=== PATIENT | female | born 1965 | race Caucasian/White ===

== ENCOUNTER 2016-09-27 20:26 | Observation (INO) | payer OTHER ==
[~2016-09-27] VITALS: Ht 167.6 cm; Wt 141.0 kg
--- NOTE | ~2016-09-27 | HP ---
PATIENT'S NAME: LETICIA WILKINS [facility] AGE: 51 Y [address] ROOM: [place] [address] LOCATION: [facility] ADMIT DATE: 09/27/2016 History & Physical DISCHARGE DATE: FAMILY PHYSICIAN: Sanket Simental MD ATTENDING PHYSICIAN: Uzair Zapien DATE OF SERVICE: 09/27/2016 CHIEF COMPLAINT: Abdominal pain. 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 She has sudden onset of generalized abdominal pain that started about 10 o'clock this morning and slowly migrated to the right lower quadrant through the course of the day. She comes with these complaints. This was also associated with anorexia since this morning and multiple episodes of bilious vomiting. Since arriving here, she has 150 of fentanyl and 8 of Zofran and her pain is better controlled but still has persistent pain in the right lower quadrant. She denies any associated fevers or chills, chest pain, shortness of breath, or other complaints. She denies any previous pain of this type. Although was somewhat reminiscent of previous attacks of diverticulitis. She denies any recent travel change in dietary habits or sick contacts. ALLERGIES: SHE HAS A SENSITIVITY FOR OXYCODONE AND HYDROCODONE WHERE IT HAS CAUSED HER A BIT OF ITCHINESS, BUT NO ACTUAL TRUE SIDE EFFECTS ASIDE FROM THAT. MEDICATION HISTORY: Please see hospital list for complete list of medications, but in short she does take aspirin normally 81 although this weekend she took some 325 because she was using her 's, otherwise she takes Synthroid and Maxzide. PAST MEDICAL HISTORY: Diabetes, hypothyroidism, history of cholecystectomy, history of diverticulitis, history of umbilical hernia repair complicated by wound infection, but did not require mesh removal. SOCIAL HISTORY: Denies tobacco or alcohol use or abuse. She is and her accompanies her here today. REVIEW OF SYSTEMS: A full 10-point review of systems was discussed with the patient was negative PATIENT'S NAME: LETICIA WILKINS [facility] AGE: 51 Y [address] ROOM: [place] [address] LOCATION: [facility] ADMIT DATE: 09/27/2016 History & Physical DISCHARGE DATE: FAMILY PHYSICIAN: Sanket Simental MD ATTENDING PHYSICIAN: Uzair Zapien except for as discussed above. Specifically, she denies any chest pain, shortness of breath, or urinary symptoms. FAMILY HISTORY: Noncontributory. She denies any history of inflammatory bowel disease or colorectal malignancies in the family. PHYSICAL EXAMINATION: GENERAL: 51-year-old woman in no apparent distress, lying on her side in the ER bed. She is in no apparent distress. Afebrile. VITAL SIGNS: Stable. HEENT: Sclerae anicteric. NECK: Supple. Trachea is midline. CHEST: Breathing is nonlabored. CARDIAC: Her rate and rhythm are regular. ABDOMEN: Soft, obese, nondistended, tenderness to palpation in the right lower quadrant. Positive Rovsing sign. EXTREMITIES: Bilateral lower extremities are warm. Brisk capillary refill without evidence of significant edema. No obvious calf tenderness or swelling. No obvious skin lesions or rashes. LABORATORY EVALUATION: White count 15.6, with 88.5% neutrophils, hemoglobin 16.0, platelets were 320. Lactate 2.2. Sodium 141, potassium is 3.7, chloride 109, CO2 is 23, BUN is 13, creatinine 0.9, calcium 8.8, glucose is 181. Total bilirubin 0.5, alkaline phosphatase 101, AST is 20, ALT is 27, amylase 35, lipase is 85, CRP is 2.01. RADIOLOGY REVIEW: CT scan of the abdomen and pelvis shows history of cholecystectomy, shows an inflamed acute appendix without periappendiceal fat stranding, dilated thick- walled appendix that lies in the retrocecal position without other acute abnormalities. ASSESSMENT AND PLAN: A 51-year-old woman with 1-day history that is clinically and radiographically suggestive of acute appendicitis. We discussed the option such as antibiotics and surgical resection. We discussed risks of surgery including infection, bleeding, damage to surrounding structures, conversion to open amongst others. We discussed the fact that the previous umbilical hernia repair does slightly complicate the issue because some amount of adhesiolysis will also be required. She understands the risks and benefits of procedure and had all of her questions answered to their satisfaction and wishes to proceed with laparoscopic appendectomy. She will get a gram of Invanz prior to surgery. She will get SCDs on and subcutaneous dose of 40 of Lovenox prior to surgery PATIENT'S NAME: LETICIA WILKINS [facility] AGE: 51 Y [address] ROOM: [place] [address] LOCATION: [facility] ADMIT DATE: 09/27/2016 History & Physical DISCHARGE DATE: FAMILY PHYSICIAN: Sanket Simental MD ATTENDING PHYSICIAN: Uzair Zapien as DVT prophylaxis. MD ISHA DICKENS (JAKE)/zachery /[id number] D: [id number]: [id number] HISTORY & PHYSICAL
--- NOTE | ~2016-09-27 | ER ---
PATIENT'S NAME: FRANKY [facility] AGE: 51 Y [address] ROOM: [place] [address] LOCATION: [facility] ADMIT DATE: 09/27/2016 ER/Outpatient Report DISCHARGE DATE: FAMILY PHYSICIAN: Sanket Simental MD ATTENDING PHYSICIAN: Uzair Zapien Admission date and time documented in the medical record. I saw the patient at 2335 hours. CHIEF COMPLAINT: Abdominal pain. HISTORY OF PRESENT ILLNESS: This patient is a 51-year-old female, who since around 1000 hours this morning has had generalized abdominal pain, accompanied with nausea and vomiting. She has vomited more than 20 times. No diarrhea. No blood in her vomitus. She has had some chills, but no documented fever. Last ate at 0800 hours. She had one bowel movement today. No urinary frequency, urgency, or dysuria. No back pain. No chest pain, shortness of breath. No lightheadedness, dizziness, syncope, or near syncope. No fall or trauma. No recent colds, coughs, or flus. No headache, eyes, ears, nose, throat, neck, or spine pain. No joint or muscle swelling, redness, or pain. No skin eruptions or rash. No history of neuro changes, psych issues, endocrine problems. HOME MEDICATIONS: See attached medication list. ALLERGIES: ULTRAM. SOCIAL HISTORY: Nonsmoker, nondrinker. SIGNIFICANT PAST MEDICAL HISTORY: Hypothyroidism, hypertension, diverticulosis, diverticulitis. OPERATIONS: Cholecystectomy, umbilical herniorrhaphy. REVIEW OF SYSTEMS: All systems reviewed by me are negative with the exception of those discussed in the history of present illness. PHYSICAL EXAMINATION: VITAL SIGNS: Temperature 98.9 tympanic, pulse 93, respirations 20, blood PATIENT'S NAME: FRANKY [facility] AGE: 51 Y [address] ROOM: [place] [address] LOCATION: [facility] ADMIT DATE: 09/27/2016 ER/Outpatient Report DISCHARGE DATE: FAMILY PHYSICIAN: Sanket Simental MD ATTENDING PHYSICIAN: Uzair Zapien pressure 172/71, O2 saturation on room air is 95%. HEAD: Normocephalic. EYES, EARS, NOSE, THROAT: Clear. Mucous membranes moist. NECK: Negative. SPINE: Negative. LUNGS: Clear. Good air flow. No rales, rhonchi, or wheezes. HEART: Regular. Pulses are palpable. ABDOMEN: Obese soft, some tenderness generalized, but more so on the right. Abdomen does guard. No CVA tenderness. EXTREMITIES: Intact. NEUROVASCULAR: Intact. SKIN: Clear. No skin eruptions or rash. LABORATORY DATA: CMS was normal except an elevated glucose 181. Amylase and lipase were normal. CRP was 2.01. Procalcitonin was less than 0.05. Lactate was 2.2. White count was 15,600, 89 segs, 7 lymphs, 4 monos, hemoglobin was 16 with hematocrit 47.1, platelet count was 320,000. EMERGENCY DEPARTMENT COURSE: I did start the patient on IV normal saline, gave her Zofran IV for nausea and vomiting, fentanyl IV for pain. Did a CT scan of the abdomen and pelvis, showed acute appendicitis. CT scan was read by Radiology, see dictated transcribed reports. IMPRESSION: 1. Right-sided abdominal pain secondary to acute appendicitis without abscess. 2. Hypothyroidism. 3. Hypertension. PLAN: Discussed the patient with Dr. Salguero, surgeon. Dr. Salguero is coming to see the patient. We will proceed on his recommendations. Discussion ensued with the patient concerning my findings and recommendations, she understands. MD NEFTALI MICHEL/pradeepl /[id number] d: 09/28/16 0051 t: 10/06/16 1826, OUTPATIENT REPORT
--- NOTE | ~2016-09-27 | OR ---
PATIENT'S NAME: HARDIK WILKINS [facility] AGE: 51 Y [address] ROOM: [place] [address] LOCATION: [facility] ADMIT DATE: 09/28/2016 OR/Procedure Report DISCHARGE DATE: FAMILY PHYSICIAN: COLLIN PIERCE MD ATTENDING PHYSICIAN: Ted SALGUERO (Jake) SURGEON: Ted Salguero MD (Jake) RUBBER GRINDER: DATE OF PROCEDURE: 09/28/2016 PREOPERATIVE DIAGNOSIS: Acute appendicitis. POSTOPERATIVE DIAGNOSIS: Acute necrotizing appendicitis. PROCEDURE PERFORMED: Laparoscopic appendectomy. ANESTHESIA: General endotracheal anesthesia. COMPLICATIONS: None. ESTIMATED BLOOD LOSS: Minimal. DRAINS: None. SPECIMENS: Appendix. FINDINGS: Acute necrotizing appendicitis. INDICATIONS FOR PROCEDURE: A 51-year-old woman with a one-day history of abdominal pain, clinically and radiographically suspicious for appendicitis, presented here today for appendectomy. PQRI: A single gram of Invanz IV was given prior to surgery in the appropriate time frame for this q.24 hour medication. SCDs were placed on prior to the case and were on throughout. Lovenox was not given prior to the case because of communication error. It will be given immediately postop. DETAILS OF PROCEDURE: After informed consent was obtained, the patient was brought to the Operating Room, and placed in supine position. Left arm was tucked. All pressure points were padded. General endotracheal anesthesia was induced. The abdomen was prepped and draped in the usual sterile fashion. Because of the risk of previous adhesions, we decided to use a Veress needle in the left upper quadrant. The area was anesthetized with 0.50% Marcaine with epi, and a Veress needle was introduced into the abdominal cavity and insufflation was achieved. We chose a location slightly higher than what we PATIENT'S NAME: HARDIK WILKINS [facility] AGE: 51 Y [address] ROOM: [place] [address] LOCATION: [facility] ADMIT DATE: 09/28/2016 OR/Procedure Report DISCHARGE DATE: FAMILY PHYSICIAN: COLLIN PIERCE MD ATTENDING PHYSICIAN: Ted SALGUERO (Jake) do, which is the usual supraumbilical 5-mm incision. We made that about skilled nursing between the xiphoid and the umbilicus to avoid the previous mesh and any adhesions associated with it. This was done after lidocaine mixture was infiltrated into the wound. A Optiview 5-mm, 0-degree scope was placed through the Optiview port over a 5-mm trocar, and introduced into the abdominal cavity under direct visualization from the scope. The abdominal cavity was inspected, and no abnormalities were noted. There was actually little to no scar tissue to the previous mesh. The site of the Veress needle was carefully inspected, and there was no injury from that Veress needle insertion either, that was removed. An additional 11-mm suprapubic and a left lower quadrant 5-mm trocar were introduced in the same fashion as above under direct visualization from the laparoscope. The patient was placed in Trendelenburg [id number]-ox position. The appendix was identified to be in the retrocecal position and acutely inflamed, but partly necrotic. No surrounding abscess or obvious perforation could be seen initially. The base of the appendix at the area of the junction with the cecum was actually fairly free of the inflammatory process, and on the one that was created at the base of the mesoappendix at this location, a GI load on a 45-mm Emlyn stapler was fired across the base of the appendix at the junction with the cecum. The rest of the appendix was quite densely stuck to the surrounding soft tissues including omentum and retroperitoneum was dissected off these tissues. Two loads of the vascular load on the Emlyn 45- mm stapler were then used to fire across the base of the mesoappendix in order to remove the rest of the appendix. While trying to mobilize the appendix away from the surrounding soft tissues, it did tear in half, but we were able to make sure that we removed the entire appendix in its entirety. When this occurred, there was some spillage of some purulent contents from within the appendix, which were immediately suctioned up, and the area was thoroughly irrigated at the end of the case. So, with return of clear effluent from all locations, the amount of spillage was only a few droplets. The both parts of the appendix were then placed into the ENDOPOUCH, and removed via the 11-mm suprapubic trocar site. Trocar was re-introduced. Pneumoperitoneum was achieved. Hemostasis was ensured. Again, a thorough irrigation of all quadrants until return of clear effluent was performed. No other abnormalities were noted. The 0 Vicryl suture on a suture passer was then used to close the suprapubic trocar site under direct visualization from the laparoscope. No bleeding could be noted. Left lower quadrant trocars were removed under direct visualization from the laparoscope. No bleeding could be noted. Pneumoperitoneum was decompressed. Last trocar was removed. WOUND CLOSURE: All the wounds were closed with 4-0 Monocryl subcuticular suture. A sterile dressing was applied. PATIENT'S NAME: HARDIK WILKINS [facility] AGE: 51 Y [address] ROOM: [place] [address] LOCATION: [facility] ADMIT DATE: 09/28/2016 OR/Procedure Report DISCHARGE DATE: FAMILY PHYSICIAN: COLLIN PIERCE MD ATTENDING PHYSICIAN: Ted SALGUERO (Tam) POSTOPERATIVE CONDITION: The patient was awakened, and taken back to Recovery in stable condition. PATRICIA) MD ISHA SALGUERO/zachery /[id number] d: t: 09/28/16 1022, OPERATIVE SUMMARY
[2016-09-27 21:21] LABS: BASOPHIL # 0.1 K/uL (0.0-0.2); BASOPHIL % 0.3 %; EOSINOPHIL % 0.2 %; HEMATOCRIT 47.1 % (33.0-46.0); IMMATURE GRANULOCYTE # 0.1 K/uL (0.0-0.3); IMMATURE GRANULOCYTE % 0.4 %; LYMPHOCYTE % 6.7 %; MCH 29.4 pg (27.0-34.0); MCV 86.6 fl (83.0-98.0); MONOCYTE # 0.6 K/uL (0.0-1.0); MONOCYTE % 3.9 %; MPV 9.7 fl (9.4-12.4); NEUTROPHIL # (ANC) 13.8 K/uL (1.8-7.8); NEUTROPHIL % 88.5 %; NRBC % 0 /100WBC (0-0.00); PLATELET COUNT 320 K/uL (150-450); RBC 5.44 M/uL (3.50-5.50); RDW-CV 13.6 % (11.9-14.6); WBC 15.6 K/uL (4.0-11.0)
[2016-09-27 21:56] LABS: ALBUMIN 3.4 gm/dL (3.5-5.0); ALK PHOS 101 IU/L (33-138); ALT 27 IU/L (12-78); ANION GAP 12.7 (10.0-19.0); AST 20 IU/L (10-40); BLOOD UREA NITROGEN 13 mg/dL (6-24); CALCIUM 8.8 mg/dL (8.5-10.5); CHLORIDE 109 mMol/L (96-110); CO2 23 mMol/L (22-32); CREATININE 0.9 mg/dL (0.5-1.1); ESTIMATED GFR (MDRD EQUATION) > 60; POTASSIUM 3.7 mMol/L (3.7-5.1); SODIUM 141 mMol/L (135-145); TOTAL BILIRUBIN 0.5 mg/dL (0.0-1.5); TOTAL PROTEIN 7.1 g/dL (6.0-8.4)
[2016-09-28] MEDS ORDERED: LEVOTHROID (S200 MCG PO (04:49)
[2016-09-28] MEDS ORDERED: LEVOTHROID (SY25 MCG PO (04:50)
[2016-09-28] MEDS ORDERED: MAXZIDE 37.5 M1 EACH PO (04:51)
--- NOTE | 2016-09-28 05:02 | NUR ---
Significant Event: Patinet alert and oriented X4. Walked from surgery cart to bed and tolerated fair. 3 stab sites to abdomen clean/dry/intact. Pneumatics on. On 2 liters oxygen. Nausea when up, denied needs for meds at this time. States pain is tolerable. Redness to face noted. Follow up: Monitor pain
--- NOTE | 2016-09-28 05:03 | NUR ---
Admission note: Patient started having abdominal pain/nausea around 1000 on 09/27/16. Has history of diverticulitus and thought it was just a flare up of that. Stated she vomited upwards of 20 times at home, and decided to come in. Showed inflamed appendix. History of diet controlled DM, HTN, hemmeroids, heart burn. Surgical history of hernia repair, coccyxgectomy, and lap appy. L) hand IV running NS at 50ml.
[2016-09-28] MEDS ORDERED: ZOCOR20 MG PO (10:34)
[2016-09-28] MEDS ORDERED: ZESTRIL2.5 MG PO (10:34)
[2016-09-28] MEDS ORDERED: ASPIRIN LO-DOSE81 MG PO (10:34)
--- NOTE | 2016-09-28 12:04 | NUR ---
Introduced self and role of care management to patient's as patient is sleeping. They live in [place]. She is able to do all her owm ADL's. Her is avialable to assist as needed. He plans on her going home on discharge. He denies needs. Will continue to follow.
[2016-09-28] MEDS ORDERED: PERCOCET 5-3251 EACH PO (15:29)
--- NOTE | 2016-09-28 16:46 | NUR ---
DISM. NOTE: A/O X 3. REVIEW OF HOME MEDS AND NEW MED WITH HANDOUT AND SIDE EFFECTS DISCUSSED. PRESCRIPTION GIVEN DIET/ ACTIVITY FOLLOW UP APPT. HOME INSTRUCT. POST APPENDECTOMY. PT. AND VOICED UNDERSTANDING.
== END 2016-09-28 16:20 | disposition disaster alternative care site (69) ==
LOC: GMED 20:26 → GPCU 09-28 00:48
PROVIDERS: Emergency Medicine; ADMIT Surgery
PROC: 0DTJ4ZZ Resection of Appendix, Percutaneous Endoscopic Approach (ICD-10-PCS; principal; 2016-09-28)
DX: K35.80 Unspecified acute appendicitis (principal); E11.9 Type 2 diabetes mellitus without complications; E03.9 Hypothyroidism, unspecified; Z90.49 Acquired absence of other specified parts of digestive tract; Z98.890 Other specified postprocedural states; J30.2 Other seasonal allergic rhinitis; Z88.6 Allergy status to analgesic agent; Z79.899 Other long term (current) drug therapy; Z88.8 Allergy status to other drugs, medicaments and biological substances
CPT/HCPCS: G0378; J1335; J1650; J2250; J2270; J2405; J3010; J7030; Q9967

== ENCOUNTER 2016-10-17 17:29 | Day surgery (SDC) | payer OTHER ==
[~2016-10-17] VITALS: Ht 167.6 cm; Wt 141.6 kg
--- NOTE | ~2016-10-17 | HP ---
PATIENT'S NAME: HARDIK WILKINS [facility] AGE: 51 Y [address] ROOM: [place] [address] LOCATION: [facility] ADMIT DATE: 10/17/2016 History & Physical DISCHARGE DATE: 10/18/2016 FAMILY PHYSICIAN: COLLIN PIERCE MD ATTENDING PHYSICIAN: Beau CHAVIRA DATE OF SERVICE: CHIEF COMPLAINT: Abdominal pain. HISTORY OF PRESENT ILLNESS: The patient is a 51-year-old female, who is status post laparoscopic appendectomy 3 weeks ago. She noticed some swelling in her abdomen and therefore presented to the office of Dr. Frederick on 10/16/2016. He evaluated her at that time and made plans for followup. She developed a fever today, prompting her presentation once again this time to the ED. She reported a temperature of 102.5. She was seen in the ED where a CAT scan was done, which revealed a large subcutaneous abscess that extended down through the fascia. Therefore, I was asked to see her in consultation. PAST MEDICAL HISTORY: Significant for obesity and hypothyroidism. PAST SURGICAL HISTORY: Significant for laparoscopic appendectomy, cholecystectomy, as well as umbilical hernia repair. SOCIAL HISTORY: Denies alcohol. REVIEW OF SYSTEMS: Negative except which was noted in the history of present illness. MEDICATIONS: 1. Synthroid. 2. Percocet. 3. Maxzide. 4. Pravastatin. LABORATORY DATA: White count is 12.3, hemoglobin 13.9, hematocrit of 41.3, and platelet count 427. Sodium is 134, potassium is 3.9, chloride is 103, CO2 of 23, BUN is 8, and creatinine is 0.8. PATIENT'S NAME: FRANKY HARDIK Bola [facility] AGE: 51 Y [address] ROOM: [address] [address] LOCATION: [facility] ADMIT DATE: 10/17/2016 History & Physical DISCHARGE DATE: 10/18/2016 FAMILY PHYSICIAN: COLLIN PIERCE MD ATTENDING PHYSICIAN: Beau CHAVIRA RADIOLOGIC STUDIES: CAT scan of the abdomen was interpreted as a fluid collection extending from the anterior abdominal wall extending in to subcutaneous tissue down to the fascia. From the superior to inferior was approximately 15 cm. Cannot R/O perforated bowel. PHYSICAL EXAMINATION: GENERAL: The patient is awake, alert, and oriented x3. Well-developed, well- nourished, morbidly obese female, in no acute distress. LUNGS: Clear. ABDOMEN: Soft with an obvious area of swelling and redness in the lower abdomen. ASSESSMENT AND PLAN: Abdominal wall abscess that extends into the peritoneal cavity. I spoke with the patient at length about the possibility of this being resulting from a bowel leak or perforated bowel. At this point, I think if we drain it adequately and there is no stool drainage, then this is a reasonable approach. I did inform her the possibility that we could drain this adequately at this time and there would be no stool drainage at this time, but the stool drainage could start at a later time. Again, the hope is to stop postop contamination, and postop residual contamination and not a perforated bowel, but certainly this is a possibility. If there is evidence of a bowel perforation, they do appropriate steps to treat . The operating room we are awaiting for them to tell us when to get started. BEAU CHAVIRA MD CC/modl /[id number] D: [id number] T: [id number] HISTORY & PHYSICAL
--- NOTE | ~2016-10-17 | OR ---
PATIENT'S NAME: HARDIK WILKINS [facility] AGE: 51 Y [address] ROOM: [address] [place], [place] [address] LOCATION: [facility] ADMIT DATE: 10/17/2016 OR/Procedure Report DISCHARGE DATE: 10/18/2016 FAMILY PHYSICIAN: COLLIN PIERCE MD ATTENDING PHYSICIAN: Beau MENDENHALL SURGEON: Beau Mendenhall MD PYROTECHNIST: DATE OF PROCEDURE: 10/18/2016 PREOPERATIVE DIAGNOSIS: Abdominal wall abscess. POSTOPERATIVE DIAGNOSIS: Abdominal wall abscess. PROCEDURES PERFORMED: Incision and drainage of abdominal wall abscess and placement of drain. ANESTHESIA: General endotracheal. INDICATIONS: The patient is a morbidly obese 51-year-old female, who is status post laparoscopic appendectomy approximately three weeks ago. She developed some abdominal pain and fever, prompting her presentation to the ED. CAT scan revealed an abdominal wall abscess. Risks and benefits of the procedure were discussed with the patient including concern for a bowel perforation, and consent was obtained. PROCEDURE IN DETAIL: the patient was prepped and draped in the usual sterile fashion. The 0.5% Marcaine without epinephrine was infused around the incision site. An incision was then made in the previous opening. Upon making the incision, a large amount of fluid under pressure immediately extruded from the operative field. It was initially clear, but immediately turned purulent and malodorous. Cultures of the material was sent. Approximately 300 to 400 mL of purulent and malodorous material was evacuated. I was able to digitally palpate the base of the cavity, which appeared to be smooth. I did not palpate bowel. The cavity was washed out with several mL of fluid. A [place] drain was then placed and a good seal was obtained. WOUND CLOSURE: The [place] drain was secured in place using a 2-0 silk suture. Incision was then dressed with sterile gauze and Tegaderm. COUNT RESULTS: At the end of this procedure, sponge and needle counts were correct. ESTIMATED BLOOD LOSS: Minimal. PATIENT'S NAME: HARDIK WILKINS [facility] AGE: 51 Y [address] ROOM: [id number] [place], [place] [address] LOCATION: [facility] ADMIT DATE: 10/17/2016 OR/Procedure Report DISCHARGE DATE: 10/18/2016 FAMILY PHYSICIAN: COLLIN PIERCE MD ATTENDING PHYSICIAN: Beau MENDENHALL POSTOPERATIVE CONDITION: The patient will be transferred to the PACU and extubated in stable condition. BEAU MENDENHALL MD CC/modl /[id number] d: 10/18/16 0522 t: 11/23/16 1510, OPERATIVE SUMMARY
--- NOTE | ~2016-10-17 | ER ---
PATIENT'S NAME: [facility] AGE: 51 Y [address] ROOM: [place] [id number] LOCATION: [facility] [place] ADMIT DATE: 10/17/2016 ER/Outpatient Report DISCHARGE DATE: 10/18/2016 FAMILY PHYSICIAN: Sanket Simental MD ATTENDING PHYSICIAN: Beau Mendenhall Time of Arrival: 1729 hours. Time Seen: 1820 hours. IDENTIFICATION: A 51-year-old female. CHIEF COMPLAINT: Fever. HISTORY OF PRESENT ILLNESS: The patient is a 51-year-old female who underwent laparoscopic appendectomy per Dr. Salguero for acute necrotizing appendicitis on September 28. Yesterday, she noticed a lump in her lower abdomen along the lower incision and was seen by Dr. Frederick. Today, she has had increased weakness, fatigue, and fever with T- max of 102.5. She has decreased appetite. No nausea or vomiting, but she has had fever and chills and increasing redness around this incision. ALLERGIES: NO KNOWN DRUG ALLERGIES. CURRENT MEDICATIONS: 1. Synthroid 0.2 mg daily and 0.025 mg on Wednesday, Wednesday, and Wednesday. 2. Maxzide 37.5 mg daily. 3. Atorvastatin 40 mg at h.s. MEDICAL PROBLEMS: Diabetes mellitus, hypothyroidism, hyperlipidemia, and history of diverticulitis. PAST SURGICAL HISTORY: Cholecystectomy, umbilical hernia repair, and laparoscopic appendectomy. SOCIAL HISTORY: The patient is an [employer] for [employer]. Tobacco use, denies. Alcohol use, denies. Drug use, denies. REVIEW OF SYSTEMS: All systems reviewed and negative other than what is noted in the HPI. PATIENT'S NAME: FR[facility]Y [facility] AGE: 51 Y [address] ROOM: [address] [address] LOCATION: [facility] [place] ADMIT DATE: 10/17/2016 ER/Outpatient Report DISCHARGE DATE: 10/18/2016 FAMILY PHYSICIAN: Sanket Simental MD ATTENDING PHYSICIAN: Beau Mendenhall FAMILY HISTORY: No pertinent family history identified. PHYSICAL EXAMINATION: VITAL SIGNS: Height 5 feet 6 inches, weight 140 kg, blood pressure 138/82, pulse 99, respirations 18, temperature 101, and saturations 95%. GENERAL: A 51-year-old female, in mild distress. HEENT: Unremarkable. LUNGS: Clear to auscultation. HEART: Regular rate and rhythm. ABDOMEN: Bowel sounds present. Soft, nondistended. Tender to palpation along the lower abdomen. Her low incision, which is midline below the umbilicus, has surrounding area of erythema of approximately 10-11 cm, it is firm and tender to touch. No CVA tenderness. EXTREMITIES: No lower extremity edema. EMERGENCY DEPARTMENT COURSE: An IV was initiated. Fentanyl was given for pain control. Procalcitonin less than 0.05. Blood cultures x2 pending. Sodium 134, potassium 3.9, chloride 103, CO2 of 23, BUN 8, creatinine 0.8, and blood sugar 140. Liver enzymes normal. UA negative. Lactate 1.1. Hemoglobin 13.9, hematocrit 41.3, platelets 427, and white count 12.3 with a normal differential. CT scan of the abdomen and pelvis with IV contrast: Large lobulated fluid collection inferiorly, could represent an abscess, measuring 11 x 10 cm; small fluid collection along the right hepatic lobe, could also represent a small abscess; and mild pneumoperitoneum. IMPRESSION: Abdominal wall abscess post appendectomy. PLAN: Dr. Mendenhall, surgeon buttonholer, was consulted and evaluated the patient in the emergency room and proceeded to the operating room. Antibiotics were ordered per Dr. Mendenhall. SAUL CHUNG MD CAR/modl /[id number] d: 10/18/16 2326 t: 10/19/16 0310, OUTPATIENT REPORT
[~2016-10-17 17:29] MED LIST: ASPIRIN LO-DOSE81 MG PO; LEVOTHROID (S200 MCG PO; LEVOTHROID (SY25 MCG PO; MAXZIDE 37.5 M1 EACH PO; PERCOCET 5-3251 EACH PO; ZESTRIL2.5 MG PO; ZOCOR20 MG PO
[2016-10-17 18:57] LABS: BASOPHIL # 0.1 K/uL (0.0-0.2); BASOPHIL % 0.5 %; EOSINOPHIL # 0.1 K/uL (0.0-0.5); EOSINOPHIL % 1.1 %; HEMATOCRIT 41.3 % (33.0-46.0); HEMOGLOBIN 13.9 g/dL (10.0-15.0); IMMATURE GRANULOCYTE % 0.3 %; LYMPHOCYTE # 2.1 K/uL (0.8-4.0); LYMPHOCYTE % 16.8 %; MCH 29.4 pg (27.0-34.0); MCHC 33.7 gm/dL (32.0-36.5); MCV 87.5 fl (83.0-98.0); MONOCYTE # 1.1 K/uL (0.0-1.0); MONOCYTE % 8.9 %; MPV 8.9 fl (9.4-12.4); NEUTROPHIL # (ANC) 8.9 K/uL (1.8-7.8); NEUTROPHIL % 72.4 %; NRBC % 0 /100WBC (0-0.00); RBC 4.72 M/uL (3.50-5.50); RDW-CV 13.2 % (11.9-14.6); WBC 12.3 K/uL (4.0-11.0)
[2016-10-17 18:58] LABS: PLATELET COUNT 427 K/uL (150-450)
[2016-10-17 19:06] LABS: BILIRUBIN URINE NEGATIVE (NEGATIVE); BLOOD URINE 50 /UL (NEGATIVE); COLOR URINE YELLOW (YELLOW); GLUCOSE URINE NEGATIVE (NEGATIVE); KETONE URINE NEGATIVE (NEGATIVE); LEUKOCYTES URINE NEGATIVE /UL (NEGATIVE); NITRITE URINE NEGATIVE (NEGATIVE); PROTEIN URINE NEGATIVE (NEGATIVE); SPEC GRAVITY URINE 1.005 (1.003-1.035); TURBIDITY URINE CLEAR (CLEAR); UROBILINOGEN URINE NORMAL (NORMAL)
[2016-10-17 19:12] LABS: WBC URINE 0-2 #/HPF (NEGATIVE)
[2016-10-17 19:13] LABS: BACTERIA URINE MODERATE (NEGATIVE)
[2016-10-17 19:21] LABS: ALK PHOS 117 IU/L (33-138); ALT 19 IU/L (12-78); ANION GAP 11.9 (10.0-19.0); AST 15 IU/L (10-40); BLOOD UREA NITROGEN 8 mg/dL (6-24); CALCIUM 8.7 mg/dL (8.5-10.5); CHLORIDE 103 mMol/L (96-110); CO2 23 mMol/L (22-32); CREATININE 0.8 mg/dL (0.5-1.1); ESTIMATED GFR (MDRD EQUATION) > 60; POTASSIUM 3.9 mMol/L (3.7-5.1); SODIUM 134 mMol/L (135-145); TOTAL PROTEIN 7.6 g/dL (6.0-8.4)
[2016-10-17 19:22] LABS: TOTAL BILIRUBIN 0.9 mg/dL (0.0-1.5)
--- NOTE | 2016-10-18 04:37 | NUR ---
PT ARRIVED TO THE UNIT FROM PACU AT 0055 VIA CART WITH SPOUSE AND DAUGHTER AT SIDE. PIV TO LAC WITH IVF INFUSING, PIV TO L) HAND SL. LEW DRAIN PLACED TO ABD WALL ABCESS FROM LAP APPY PROCEEDURE (POST-OP 3 WEEKS). SITE COVERED WITH GAUZE AND TEGADERM, CDI. OLD STAB SITES OPEN TO AIR, IN THE PROCESS OF HEALING. PT STATED SHE WAS NAUSEATED FROM THE TRANSPORT, ARRIVED PREVIOUSLY MEDICATED. DENIED PAIN/SOB. TRANSFERED HERSELF FROM CART TO BED, TOLERATED WELL. VSS UPON ADMISSION.
--- NOTE | 2016-10-18 04:44 | NUR ---
PT ARRIVED TO THE UNIT FROM PACU AT 0055 VIA CART WITH SPOUSE AND DAUGHTER AT SIDE. PIV TO LAC WITH IVF INFUSING, PIV TO L) HAND SL. LEW DRAIN PLACED TO ABD WALL ABCESS FROM LAP APPY PROCEEDURE (POST-OP 3 WEEKS). SITE COVERED WITH GAUZE AND TEGADERM, CDI. OLD STAB SITES OPEN TO AIR, IN THE PROCESS OF HEALING. PT STATED SHE WAS NAUSEATED FROM THE TRANSPORT, ARRIVED PREVIOUSLY MEDICATED. DENIED PAIN/SOB. TRANSFERED HERSELF FROM CART TO BED, TOLERATED WELL. VSS UPON ADMISSION. 2 VOIDS. IVF CHANGED FROM 1/2 NS TO D51/2NS WITH 20 MEQS KCl IFA 100ML/HR TO LAC. PT PLACED ON 2.5L/NC DUE TO DESATTING DURING SLEEP. 2MG MORPHINE ADMINISTERED X1 AT 0230, 7/10 PAIN SCALE. SBA. COOPERATIVE WITH CARES. RESTED WELL FOR REST OF SHIFT.
[2016-10-18] MEDS ORDERED: CIPRO500 MG PO (14:37)
[2016-10-18] MEDS ORDERED: DILAUDID 2MG(HYD2 MG PO (14:37)
--- NOTE | 2016-10-18 16:10 | NUR ---
Significant Event: Pt up ad deborah in room. MS IV given x2 for pain, states percocet makes her feel funny. Emptied 50ml from natalia drain. Dressing d/i to abd. Dc to home at 1530. States understanding of all dc instructions, new meds, pain management, and care of natalia. Follow up:
== END 2016-10-18 15:25 | disposition disaster alternative care site (69) ==
LOC: GMED 17:29 → GMSU 22:17 → GSDC 22:17 → GMED 22:17 → GMSU 22:17 → GSDC 10-18 15:25 → GMSU 10-18 15:25
PROVIDERS: Family Medicine
PROC: 0J980ZZ Drainage of Abdomen Subcutaneous Tissue and Fascia, Open Approach (ICD-10-PCS; principal; 2016-10-17)
DX: T81.4XXA Infection following a procedure, initial encounter (principal); L02.211 Cutaneous abscess of abdominal wall; I10 Essential (primary) hypertension; E11.9 Type 2 diabetes mellitus without complications; F41.9 Anxiety disorder, unspecified; E66.01 Morbid (severe) obesity due to excess calories; E03.9 Hypothyroidism, unspecified; E78.5 Hyperlipidemia, unspecified; Z68.43 Body mass index [BMI] 50.0-59.9, adult; Z90.49 Acquired absence of other specified parts of digestive tract; Z98.890 Other specified postprocedural states; Z79.899 Other long term (current) drug therapy
CPT/HCPCS: J0744; J2270; J2550; J3010; J3480; Q9967